=== PATIENT | male | born 1990 | race Caucasian/White ===

== ENCOUNTER → 2020-07-20 | Outpatient (CLI) | payer OTHER ==
--- NOTE | 2020-07-20 10:04 | Diagnostic Imaging Report ---
EXAM: Focused Soft Tissue Ultrasound Evaluation of the left lower thigh INDICATION: ^[id number] ^[id number] ^LACERATION WITHOUT FOREIGN BODY COMPARISON: None TECHNIQUE: Marks scale, color Doppler images of the left lower thigh soft tissues were obtained. FINDINGS: Sonographic evaluation of the medial left lower thigh in the area of clinical concern and prior laceration demonstrates a small anechoic simple fluid collection which measures up to 1.9 x 0.5 cm. No associated vascularity. No soft tissue mass. Small amount of adjacent subcutaneous soft tissue edema. IMPRESSION: Small focal anechoic fluid collection in the area of clinical interest may represent a seroma or small hematoma. No soft tissue mass. Signed by: Janene Yang MD on 07/20/2020 10:01 AM
== END ==
LOC: US 08:56
PROVIDERS: ATTEND Family Medicine
DX: S71.112D Laceration without foreign body, left thigh, subsequent encounter (principal)
CPT/HCPCS: 76882